=== PATIENT | male | born 1945 | race Caucasian/White ===

== ENCOUNTER → 2017-02-02 | Outpatient (CLI) | payer MEDICARE, BC ==
[~2017-02-02] MED LIST: ADALAT; ASPIRIN 32325 MG/TAB PO; ASPIRIN 81M81 MG/TA2 PO; CEPHALEXIN500 M1 PO; DULERA1 ARO IH; HCTZ 25MG TAB25 MG PO; IMDUR60 MG PO; LOPRESSOR 225 MG/TAB PO; LORTAB 5/500 501 TAB PO; PEPCID 20MG TAB20 MG PO; PLAVIX 75MG TAB75 MG PO; PRINIVIL40 MG PO; PROCARDIA XL90 MG PO; SYMBICORT1 AER IH; TOPROL XL100 MG PO; ZOCOR40 MG PO
== END ==
LOC: COL.RAD 10:08
DX: I34.0 Nonrheumatic mitral (valve) insufficiency (principal); I70.0 Atherosclerosis of aorta; I51.7 Cardiomegaly; Z87.891 Personal history of nicotine dependence

== ENCOUNTER → 2017-02-13 | Outpatient (CLI) | payer MEDICARE, BC | LOC: COL.CARD 09:09 | DX: I49.3 Ventricular premature depolarization (principal); I10 Essential (primary) hypertension; R42 Dizziness and giddiness ==

== ENCOUNTER 2017-03-01 07:43 | Day surgery (SDC) | payer MEDICARE, BC ==
[~2017-03-01] VITALS: Ht 177.8 cm; Wt 77.3 kg
[2017-03-01] VITALS (7 sets, daily range): BP systolic 114–151; BP diastolic 57–88; PULSE 71–91; TEMP 97.9
[~2017-03-01 07:43] MED LIST changes: -ASPIRIN 81M81 MG/TA2 PO; -DULERA1 ARO IH; -HCTZ 25MG TAB25 MG PO; -LOPRESSOR 225 MG/TAB PO; -PRINIVIL40 MG PO
[2017-03-01 08:33] LABS: HEMATOCRIT 42.8 % (42.0-52.0); MEAN CELL VOLUME 106 fl (80.0-100.0); MEAN CORPUSCULAR HEMOGLOBIN 37 pg (27.0-31.0); MEAN CORPUSCULAR HGB CONC 35 g/dl (33.0-37.0); MEAN PLATELET VOLUME 9.1 fl (7.4-10.4); PLATELET COUNT 236 K/mm3 (130-400); RED BLOOD COUNT 4.04 M/mm3 (4.20-5.60); REDCELL DISTRIBUTION WIDTH-CV 11.5 % (11.5-14.5); WHITE BLOOD COUNT 9.4 K/mm3 (4.8-10.8)
[2017-03-01 08:34] LABS: INR 1.2 (0.8-3.0); PROTHROMBIN TIME 13.1 SECONDS (9.7-12.8)
[2017-03-01 08:36] LABS: CALCIUM 9.1 mg/dL (8.4-10.2); CREATININE, serum 1.04 mg/dL (0.66-1.25); POTASSIUM 4.2 mmol/L (3.4-5.0)
[2017-03-01] MEDS ORDERED: ASPIRIN 81M81 MG/TA2 PO (08:44)
[2017-03-01] MEDS ORDERED: DULERA1 ARO IH (08:45)
[2017-03-01] MEDS ORDERED: HCTZ 25MG TAB25 MG PO (08:45)
[2017-03-01] MEDS ORDERED: LOPRESSOR 225 MG/TAB PO (08:46)
[2017-03-01] MEDS ORDERED: PRINIVIL40 MG PO (08:46)
== END 2017-03-01 14:45 | disposition home or self-care (01) ==
LOC: COL.CAR 07:43
PROVIDERS: Internal Medicine Cardiovascular Disease
DX: I25.10 Atherosclerotic heart disease of native coronary artery without angina pectoris (principal); R94.39 Abnormal result of other cardiovascular function study; I08.3 Combined rheumatic disorders of mitral, aortic and tricuspid valves; J44.9 Chronic obstructive pulmonary disease, unspecified; F17.210 Nicotine dependence, cigarettes, uncomplicated; I10 Essential (primary) hypertension; M35.3 Polymyalgia rheumatica; Z79.82 Long term (current) use of aspirin; Z79.899 Other long term (current) drug therapy
CPT/HCPCS: C1769; C1887; C1894; J1644; J2250; J2704; J3010; Q9967